=== PATIENT | female | born 1995 | race American Indian/Alaskan Native ===

== ENCOUNTER 2018-12-13 11:36 | Inpatient (IN) | payer OTHER ==
[2018-12-13] MEDS ORDERED: AMPICILLIN/NS 2 GM/100 ML 2 GM/100 ML BAG IV ONE (11:54)
[2018-12-13] MEDS ORDERED: LACTATED RINGERS 1,000 ML IV SCH (12:00)
[2018-12-13] MEDS ORDERED: PITOCin/NS 20 UNIT/1000ML DRIP 20,000 MILLIUNITS/1,000 ML BAG IV ONE (12:10)
[2018-12-13 12:20] LABS: Basophils % (Auto) 0.2 % (0.0-1.8); Hematocrit 35.6 % (30.3-42.9); Hemoglobin 12.3 gm/dl (10.1-14.3); Lymphocytes # (Auto) 1.4 K/mm3 (1.2-5.4); Mean Corpuscular HGB Conc 35 % (30-34); Mean Corpuscular Volume 93 fl (79-97); Monocytes # (Auto) 0.7 K/mm3 (0.0-0.8); Monocytes % (Auto) 8.3 % (0.0-7.3); Platelet Count 259 K/mm3 (140-440); Red Blood Count 3.83 M/mm3 (3.65-5.03); Red Cell Distribution Width 13.3 % (13.2-15.2)
--- NOTE | 2018-12-13 13:10 | Procedure Note ---
OB Delivery Note - Delivery Estimated blood loss: other (150ml) - Vaginal Delivery position: OA Intrapartum events: no care Delivery augmentation: rupture of membranes Delivery monitor: external FHT Route of delivery: Delivery placenta: spontaneous Episiotomy: none Anesthesia: none - A at 1 minute: 8 at 5 minutes: 9 Gender: Male (spontaneous cry, 7lb 6oz 3360g)
--- NOTE | 2018-12-13 13:14 | History and Physical Report ---
History of Present Illness Date of admission: 12/13/18 11:49 Chief complaint: uterine contractions History of present illness: 23yo 40 weeks by LMP with no care presented in active labor. She denies loss of fluid or vaginal bleeding. She presented at 8cm with bulging membranes and went on to deliver a viable male (see delivery note). She had an ultrasound in June, per her account, at [facility] but no established care. She reports delivery of her previous children vaginally with no prior complications. Past History Past Medical History: no pertinent history Past Surgical History: no surgical history Social history: other (first cousin arrived - unaware patient was full-term) - Obstetrical History : 3 Number of Living Children: 2 Medications and Allergies Allergies Allergy/AdvReac Type Severity Reaction Status Date / Time No Known Allergies Allergy Verified 12/13/18 11:43 Home Medications Medication Instructions Recorded Confirmed Last Taken Type Pnv No.95/Ferrous Fum/Folic AC 1 each PO DAILY 08/10/16 08/11/16 08/10/16 History [ [place]] Docusate Sodium [Colace] 100 mg PO BID PRN #60 capsule 08/12/16 Unknown Rx Ferrous Sulfate [Feosol 325 MG tab] 325 mg PO BID #120 tablet 08/12/16 Unknown Rx HYDROcodone/APAP 5-325 [[place] 2 each PO Q6H PRN #30 tablet 08/12/16 Unknown Rx 5-325 mg TAB] Ibuprofen [Motrin 600 MG tab] 600 mg PO Q6H PRN #30 tablet 08/12/16 Unknown Rx Active Meds: Active Medications Lactated Ringer's (Lactated Ringers) 1,000 mls @ 125 mls/hr IV DIRECT BRIDGER - Vital Signs Vital signs: Vital Signs Pulse BP 93 H 106/55 12/13/18 12:12 12/13/18 12:12 Temp Pulse Resp BP Pulse Ox 97.6 F 100 H 20 138/61 12/13/18 12:20 12/13/18 13:03 12/13/18 12:20 12/13/18 13:03 - Physical Exam Vulva: both: normal - Obstetrical FHR: auscultation normal Cervical Dilatation: 10 Cervical Effacement Percentage: 100 Uterine Contraction Frequency (min): 0 Results Result Diagrams: 12/13/18 12:10 Abnormal lab results 12/13/18 Range/Units 12:10 MCHC 35 H (30-34) % [place] % (Auto) 8.3 H (0.0-7.3) % Seg Neutrophils % 75.5 H (40.0-70.0) % All other labs normal. Assessment and Plan - Patient Problems (1) No care in current Current Visit: Yes Status: Acute Plan to address problem: 1. Ultrasound for dating 2. No care labs 3. Ampicillin for unknown GBS status and unsure gestational age 4. Anticipate (2) Morbid obesity with BMI of 50.0-59.9, adult Current Visit: Yes Status: Acute
[2018-12-13] MEDS ORDERED: ZOFRAN IV PRN (13:17)
[2018-12-13] MEDS ORDERED: TYLENOL PO PRN (13:17)
[2018-12-13] MEDS ORDERED: LANSINOH TP PRN (13:17)
[2018-12-13] MEDS ORDERED: MILK OF MAGNESIA PO PRN (13:17)
[2018-12-13] MEDS ORDERED: PHENERGAN PO PRN (13:17)
[2018-12-13] MEDS ORDERED: DULCOLAX PR PRN (13:17)
[2018-12-13] MEDS ORDERED: BENADRYL PO PRN (13:17)
[2018-12-13] MEDS ORDERED: TUCKS PAD TP PRN (13:17)
[2018-12-13] MEDS: IBUPROFEN PO SCH ×2 (13:55→22:14)
[2018-12-13] MEDS ORDERED: SODIUM CHLORIDE FLUSH SYRINGE 10 ML IV SCH (14:00)
[2018-12-13 15:55] LABS: Amphetamine Screen,Urine PRESUMPTIVE NEGATIVE; Benzodiazepines Screen,Urine PRESUMPTIVE NEGATIVE; Cannabinoid Screen,Urine PRESUMPTIVE NEGATIVE; Cocaine Screen,Urine PRESUMPTIVE NEGATIVE; Methadone Screen,Urine PRESUMPTIVE NEGATIVE; Opiate Screen,Urine PRESUMPTIVE NEGATIVE
[2018-12-13 15:56] LABS: Bilirubin,Urine NEG (Negative); Blood,Urine LG (Negative); Color,Urine Red (Yellow); Urobilinogen,Urine < 2.0 mg/dL (<2.0)
[2018-12-13 15:58] LABS: RBC,Urine > 182.0 /HPF (0.0-6.0)
[2018-12-14 01:12] LABS: Hematocrit 33.1 % (30.3-42.9); Hemoglobin 10.8 gm/dl (10.1-14.3)
[2018-12-14] MEDS: IBUPROFEN PO SCH ×2 (09:42→18:45)
--- NOTE | 2018-12-14 10:25 | Progress Note ---
Assessment and Plan A: PP Day #1 Stable P: Follow Routine Orders Depo Provera prior to discharge D/C Home today RTO in 6 Weeks Subjective - Subjective Date of service: 12/14/18 Patient reports: appetite normal, voiding normally, pain well controlled, flatus, ambulating normally [place]: doing well Objective - Vital Signs Latest vital signs: Vital Signs Temp Pulse Resp BP BP Pulse Ox 12/14/18 08:45 98.3 F 79 20 101/46 12/14/18 01:30 97.9 F 83 20 126/62 97 12/13/18 22:15 98.5 F 86 20 123/61 97 12/13/18 15:45 98.1 F 77 20 86/31 12/13/18 14:18 94 H 110/59 12/13/18 14:03 90 108/54 12/13/18 13:48 97 H 119/59 12/13/18 13:33 88 118/58 12/13/18 13:18 97 H 131/60 12/13/18 13:03 100 H 138/61 12/13/18 12:53 97 H 141/62 12/13/18 12:48 101 H 120/57 12/13/18 12:33 116 H 125/81 12/13/18 12:20 97.6 F 20 12/13/18 12:12 93 H 106/55 Intake and Output 12/13/18 12/14/18 12/14/18 22:59 06:59 14:59 Intake Total 600 360 240 Output Total 1600 600 Balance -1000 360 -360 Intake: Oral 600 360 240 Output: Urine 1600 600 Void 1600 600 Other: Total, Intake Amount 240 120 240 Total, Output Amount 700 600 # Voids Void 1 2 - Exam Breasts: Present: normal Cardiovascular: Present: Regular rate Lungs: Present: Clear to auscultation, Normal air movement Abdomen: Present: normal appearance, soft, normal bowel sounds Uterus: Present: normal, firm, fundal height below umbilicus Extremities: Present: normal - Labs Labs: Abnormal lab results 12/13/18 12/13/18 Range/Units 12:10 14:54 MCHC 35 H (30-34) % [place] % (Auto) 8.3 H (0.0-7.3) % Seg Neutrophils % 75.5 H (40.0-70.0) % Urine WBC (Auto) 58.0 H (0.0-6.0) /HPF
--- NOTE | 2018-12-14 10:26 | Discharge Summary ---
Providers - Providers Date of Admission: 12/13/18 11:49 Date of discharge: 12/14/18 Attending physician: ANALISA FELIPE Primary care physician: [employer] Hospitalization Reason for admission: active labor Delivery: Episiotomy: none Laceration: none Other procedures: none complications: none Discharge diagnosis: IUP at term delivered baby: male Condition at discharge: Good Disposition: DC-01 TO HOME OR SELFCARE Plan - Provider Discharge Summary Activity: routine, no sex for 6 weeks, no heavy lifting 4 weeks, no strenuous exercise Diet: routine Instructions: routine Additional instructions: [] Smoking cessation referral if applicable(refer to patient education folder for contact #) [] Refer to [facility]'s [facility] Booklet Call your doctor immediately for: * Fever > 100.5 * Heavy vaginal bleeding ( >1 pad per hour) * Severe persistent headache * Shortness of breath * Reddened, hot, painful area to leg or breast * Drainage or odor from incision. * Keep incision clean and dry at all times and follow doctor's instructions regarding bathing/showering - Follow up plan Follow up: PRIMARY CARE, [Primary Care Provider] - 7 Days
[2018-12-14] MEDS ORDERED: DEPO-PROVERA (CONTRACEPTION) IM ONE ×2 (11:00→23:00)
[2018-12-14 17:55] VITALS: BP 102/49
== END 2018-12-14 23:20 | disposition home or self-care (01) | DRG 807 ==
LOC: TRG 11:36 → LD 11:49 → TRG 11:49 → OB 15:26
PROVIDERS: ADMIT Obstetrics & Gynecology; ATTEND Obstetrics & Gynecology
PROC: 10E0XZZ Delivery of Products of Conception, External Approach (ICD-10-PCS; principal; 2018-12-13)
DX: O99.214 Obesity complicating childbirth (principal); Z37.0 Single live birth; E66.01 Morbid (severe) obesity due to excess calories; Z3A.40 40 weeks gestation of pregnancy; Z71.3 Dietary counseling and surveillance
CPT/HCPCS: 36415; 80307; 81001; 85014; 85018; 85025; 85660; 86592; 86706; 86762; 86850; 86900; 86901; 87806; 88307; G0378; J0290; J1050; J2590